=== PATIENT | male | born 1935 | race Caucasian/White ===

== ENCOUNTER 2017-04-28 07:11 | Day surgery (SDC) | payer OTHER ==
[2017-04-28] MEDS ORDERED: LIDOCAINE 1% 2 ML INJ ONE (08:08)
--- NOTE | 2017-04-28 08:26 | PDGENHP ---
History & Physical Chief Complaint: Microcytic anemia Relevant Physical Exam: GEN: NAD. Cardiac: Paced. Lungs: CTA B. Abd: Soft, nt , nd
--- NOTE | 2017-04-28 08:34 | PDANEPAE ---
ANE History of Present Illness Patient presents for colonoscopy ANE Past Medical History - Cardiovascular History Hx Hypertension: Yes Hx Arrhythmias: Yes Hx Chest Pain: No Hx Coronary Artery / Peripheral Vascular Disease: Yes Hx CHF / Valvular Disease: Yes Hx Palpitations: No Cardiovascular History Comment: Stent placed 2010. 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 - Cancer History Hx Cancer: Yes Cancer History Comment: SKIN CA - Congenital Disorder History Hx Congenital Disorders: No - GI History Hx Gastrointestinal Disorders: No - Other Health History Other Health History: SKIN CA. BRUISES EASILY. PT IS VERY HIGH FALL RISK - Chronic Pain History Chronic Pain: No - Surgical History Prior Surgeries: 2010 stent placed. 2013 pt fell [facility] Cardiac arrest. 2013 medtronic pacemaker/icd placed. 2015 pt experienced 4 falls one needed shoulder surgery. CARLI Review of Systems Review of Systems: - Exercise capacity METS (RN): 3 METS - Pacemaker Pacemaker Type: Permanent Pacer/Defib Pacemaker Director Of Sustainability: [employer] CARLI Patient History - Allergies Allergies/Adverse Reactions: cephalexin [From Keflex] Allergy (Mild, Verified 04/28/17 07:51) - NPO status NPO Status: no food or drink >8 hours - Anes Hx Anes Hx: no prior problems - Smoking Hx Smoking Status: Never smoked - Family Anes Hx Family Hx Anesthesia Complications: none ANE Labs/Vital Signs - Vital Signs Height: 182.88 cm Weight: 86.183 kg ANE Physical Exam - Airway Neck exam: FROM Mallampati Score: Class 2 Mouth exam: normal dental/mouth exam - Pulmonary Pulmonary: no respiratory distress - Cardiovascular Cardiovascular: regular rate and rhythym - ASA Status ASA Status: IV ANE Anesthesia Plan Anesthesia Plan: GA with mask Total IV Anesthesia: Yes
[2017-04-28] MEDS ORDERED: LIDOCAINE 1% 2 ML INJ ID PRN (08:36)
[2017-04-28] MEDS ORDERED: LR 1,000 ML IV ONE (08:36)
[2017-04-28 08:49] VITALS: PULSE 88; TEMP 97.5
[2017-04-28] MEDS ORDERED: PROPOFOL/EMULSION 500 MG/50 ML BOTTLE IV ONE (08:57)
[2017-04-28] MEDS ORDERED: NALOXONE HCL 0.4 MG/ML INJ IVP PRN ×2 (09:06→10:43)
[2017-04-28] MEDS ORDERED: ONDANSETRON 4 MG/2 ML VIAL IVP PRN ×2 (09:06→10:43)
--- NOTE | 2017-04-28 09:34 | GIREPORT ---
[facility] - Endoscopy Department Patient Name: Jg Stacy Procedure Date: 04/28/2017 8:52 AM Patient Type: Outpatient Attending / ER Physician: Ran Ramirez MD Procedure: Colonoscopy Indications: Iron deficiency anemia Providers: Ran Ramirez MD Medicines: Monitored Anesthesia Care Complications: No immediate complications. Description of Procedure: After obtaining informed consent, the scope was passed under direct vis ion. Throughout the procedure, the patient's blood pressure, pulse, and oxyg en saturations were monitored continuously. The Colonoscope with irrigatio n channel was introduced through the anus and advanced to the terminal il eum, with identification of the appendiceal orifice and IC valve. The colono scopy was performed without difficulty. The patient tolerated the procedure w ell. The quality of the bowel preparation was good. Findings: The perianal and digital rectal examinations were normal. The terminal ileum appeared normal. A 2 mm polyp was found in the ascending colon. The polyp was sessile. T he polyp was removed with a cold biopsy forceps. Resection and retrieval w ere complete. Verification of patient identification for the specimen was d one by the physician and nurse using the patient's name and date. Estimated blood loss was minimal. Two sessile polyps were found in the cecum. The polyps were 3 to 4 mm i n size. These polyps were removed with a cold snare. Resection and retrie charley were complete. Verification of patient identification for the specimen was done by the physician and nurse using the patient's name and date . Estimated blood loss was minimal. Multiple medium-mouthed diverticula were found in the sigmoid colon and descending colon. The retroflexed view of the distal rectum and anal verge was normal and showed no anal or rectal abnormalities. Estimated Blood Loss: Estimated blood loss: none. Post Op Diagnosis: - The examined portion of the ileum was normal. - One 2 mm polyp in the ascending colon, removed with a cold biopsy for ceps. Resected and retrieved. - Two 3 to 4 mm polyps in the cecum, removed with a cold snare. Resecte d and retrieved. - Diverticulosis in the sigmoid colon and in the descending colon. - The distal rectum and anal verge are normal on retroflexion view. Recommendation: - Discharge patient to home (with escort). - High fiber diet. - Continue present medications. - Repeat colonoscopy is not recommended for given his age for screening or surveillance purposes. - Await pathology results. Results are available in 10 days. - Thank you for allowing me to participate in the care of your patient. Attending Participation: I personally performed the entire procedure without the assistance of a fellow, resident or surg ical help desk assistant. Ran Ramirez MD Ran Ramirez MD 04/28/2017 9:33:47 AM This report has been signed electronicallyDadelmi Ramirez MD Number of Addenda: 0 Note Initiated On: 04/28/2017 8:52 AM Total Procedure Duration Time 0 hours 20 minutes 12 seconds [email or web address]
--- NOTE | 2017-04-28 09:54 | POSTANESTH ---
Post Anesthetic Evaluation Cardiovascular Status: Normal, Stable Respiratory Status: Normal, Stable Level of Consciousness/Mental Status: Mildly Sleepy, Arousable Pain Control: Adequate, Prn Tx Ordered Nausea/Vomiting Control: Adequate, Prn Tx Ordered Complications Possibly Related to Anesthesia: None Noted
[2017-04-28] MEDS ORDERED: LR 500 ML IV PRN (10:43)
[2017-04-28 10:51] VITALS: O2SAT 93
[2017-04-28 11:05] VITALS: RESP 18
[2017-04-28 11:15] VITALS: BP 156/91
== END 2017-04-28 11:18 | disposition home or self-care (01) ==
LOC: FSGY 07:11
PROVIDERS: ATTEND Internal Medicine Gastroenterology
PROC: 0DBH8ZX Excision of Cecum, Via Natural or Artificial Opening Endoscopic, Diagnostic (ICD-10-PCS; principal; 2017-04-28 08:45)
PROC: 0DBK8ZX Excision of Ascending Colon, Via Natural or Artificial Opening Endoscopic, Diagnostic (ICD-10-PCS; principal; 2017-04-28 08:45)
DX: D12.2 Benign neoplasm of ascending colon (principal); D12.0 Benign neoplasm of cecum; D50.9 Iron deficiency anemia, unspecified
CPT/HCPCS: J2704

== ENCOUNTER 2017-05-21 09:53 | Emergency (ER) | payer OTHER ==
[2017-05-21] MEDS ORDERED: FUROSEMIDE 40 MG/4 ML VIAL IVP ONE (10:15)
--- NOTE | 2017-05-21 10:17 | EDPHY ---
H & P Stated Complaint: SOB--Bilat low ext edema, sent from pcp for presumed CHF flare Time Seen by Provider: 05/21/17 10:06 HPI/ROS: CHIEF COMPLAINT: CHF HISTORY OF PRESENT ILLNESS: Patient is a 81-year-old man who was sent to the emergency department from his airport operations specialist's office for CHF exacerbation. Patient has a history of coronary artery disease, CVA, pacemaker, stents, atrial flutter currently not on anticoagulants other than aspirin. He has a watchman filter in place and has an ablation scheduled in 2 weeks. He has an ejection fraction 25%. He has decompensated over the last few days. He missed a couple doses of his Lasix which is usually 20 mg per day. He has gained 10 lb the last 2 days. His airport operations specialist is Dr. Vinson. They recommended he come here for IV Lasix and admission. No fevers. REVIEW OF SYSTEMS: Constitutional: denies: chills, fever, recent illness, recent injury EENTM: denies: blurred vision, double vision, nose congestion Respiratory: denies: cough, shortness of breath Cardiac: denies: chest pain, irregular heart rate, lightheadedness, palpitations Gastrointestinal/Abdominal: denies: abdominal pain, diarrhea, nausea, vomiting, blood streaked stools Genitourinary: denies: dysuria, frequency, hematuria, pain Musculoskeletal: denies: joint pain, muscle pain Skin: denies: lesions, rash, jaundice, bruising Neurological: denies: headache, numbness, paresthesia, tingling, dizziness, weakness Hematologic/Lymphatic: denies: blood clots, easy bleeding, easy bruising Immunologic/allergic: denies: HIV/AIDS, transplant EXAM: GENERAL: Well-appearing, well-nourished and in no acute distress. HEAD: Atraumatic, normocephalic. EYES: Pupils equal round and reactive to light, extraocular movements intact, sclera anicteric, conjunctiva are normal. ENT: TMs normal, nares patent, oropharynx clear without exudates. Moist mucous membranes. NECK: Normal range of motion, supple without lymphadenopathy or JVD. LUNGS: Breath sounds clear to auscultation bilaterally and equal. No wheezes rales or rhonchi. HEART: Regular rate and rhythm without murmurs, rubs or gallops. ABDOMEN: Soft, nontender, normoactive bowel sounds. No guarding, no rebound. No masses appreciated. BACK: No CVA tenderness, no spinal tenderness, step-offs or deformities EXTREMITIES: Normal range of motion, no pitting or edema. No clubbing or cyanosis. NEUROLOGICAL: Cranial nerves II through XII grossly intact. Normal speech, normal gait. 5/5 strength, normal movement in all extremities, normal sensation PSYCH: Normal mood, normal affect. SKIN: Warm, dry, normal turgor, no visible rashes or lesions. Source: Patient Exam Limitations: No limitations - Personal History Current Tetanus/Diphtheria Vaccine: Unsure Current Tetanus Diphtheria and Acellular Pertussis (TDAP): Unsure - Medical/Surgical History Hx Asthma: No Hx Chronic Respiratory Disease: No Hx Diabetes: No Hx Cardiac Disease: Yes Hx Renal Disease: No Hx Cirrhosis: No Hx Alcoholism: No Hx HIV/AIDS: No Hx Splenectomy or Spleen Trauma: No Other PMH: CHF, a flutter, Pacer. htn, cva L leg deficit. radiation L lower leg 04/21. filter L [facility] - Family History Significant Family History: No pertinent family hx - Social History Smoking Status: Never smoked Alcohol Use: Sober Drug Use: None Constitutional: Initial Vital Signs Temperature (C) 36.5 C 05/21/17 10:00 Heart Rate 71 05/21/17 10:00 Respiratory Rate 18 05/21/17 10:00 Blood Pressure 152/108 H 05/21/17 10:00 O2 Sat (%) 97 05/21/17 10:00 O2 Delivery Mode Room Air Allergies/Adverse Reactions: cephalexin [From Keflex] Allergy (Mild, Verified 04/28/17 07:51) Home Medications: Medication Instructions Recorded Aspirin 05/21/17 Furosemide [Lasix 40 MG (*)] 40 mg PO DAILY #10 tab 05/21/17 Lisinopril 05/21/17 SIMVASTATIN 05/21/17 Medical Decision Making - Diagnostics EKG Interpretation: An EKG obtained and was read and documented in trace view. Please see trace view for full reading and report. Ventricular paced rhythm Imaging: Discussed imaging studies w/ call worker person Radiologist ED Course/Re-evaluation: 11:40 a.m. we discussed the test results. The patient is overall looking very good. Saturations 97% on room air. No crackles on lung exam. X-ray no significant changes. I suspect that the patient could be treated as an outpatient. He skipped several days of Lasix. I encouraged him to be more reliable and will increase it for the next few days. I will call his airport operations specialist to discuss. 12:05 pm the patient is clinically doing well. His x-ray and lab work are reassuring. I discussed this with his medical apparatus model maker Dr. Raines who agrees that he could be managed at home on oral Lasix. She states that she tried to do this from the office but that the was somewhat resistant. We will increase him to 40 mg daily for 3 days and then have him follow up in their clinic. I spoke with the who was hesitant to take him back home because she is very busy trying to finish a paper that she has been working on for 5 years. She did however agree and states that that seemed reasonable. She will come pick him up at 2:30 a.m.. 2:50 p.m. the patient's is here to pick him up. He has urinated multiple times. He is feeling well. He has had without difficulty. He is not short of breath. He is not hypoxic. Differential Diagnosis: Partial list of the Differential diagnosis considered include but were not limited to; anxiety, CHF exacerbation, pulmonary edema and although unlikely based on the history and physical exam, I also considered infection, pneumonia acute coronary disease. - Data Points Laboratory Results: Laboratory Results 05/21/17 10:36 05/21/17 10:36 Medications Given: Discontinued Medications Furosemide (Lasix Injection) 40 mg IVP EDNOW ONE Stop: 05/21/17 10:16 Last Admin: 05/21/17 10:47 Dose: 40 mg Departure - Departure Disposition: Home, Routine, Self-Care Clinical Impression: Congestive heart failure Qualifiers: Congestive heart failure type: unspecified congestive heart failure type Congestive heart failure chronicity: acute on chronic Qualified Code(s): I50.9 - Heart failure, unspecified Condition: Good Instructions: Heart Failure (ED) Referrals: KOFFI LAURA [Other] - As per Instructions Prescriptions: Furosemide [Lasix 40 MG (*)] 40 mg PO DAILY #10 tab
--- NOTE | 2017-05-21 10:32 | CPEKG ---
Heart Rate: 70 RR Interval: 857 P-R Interval: 217 QRSD Interval: 148 QT Interval: 452 QTC Interval: 488 P [place]: 0 QRS [place]: -64 T Wave [place]: 122 EKG Severity - ABNORMAL ECG - EKG Impression: VENTRICULAR-PACED RHYTHM Electronically Signed By: Franco Cobb 21-May-2017 10:33:51
[2017-05-21 10:48] LABS: % IMMATURE GRANULYOCYTES 0.4 % (0.0-1.1); ABSOLUTE IMMATURE GRANULOCYTES 0.02 10^3/uL (0.00-0.10); ADD DIFF? NO; ADD MORPH? YES; ADD SCAN? NO; ATYPICAL LYMPHOCYTE FLAG 20 (0-99); FRAGMENT RBC FLAG 20 (0-99); HEMOGLOBIN 13.1 g/dL (13.7-17.5); LEFT SHIFT FLG 0 (0-99); LIPEMIA HEMOLYSIS FLAG 80 (0-99); MEAN CELL HEMOGLOBIN 26.9 pg (27.9-34.1); MEAN CELL HEMOGLOBIN CONCENTR. 32.8 g/dL (32.4-36.7); MEAN CELL VOLUME 82.1 fL (81.5-99.8); MEAN PLATELET VOLUME 10.2 fL (8.7-11.7); PLATELET CLUMPS FLAG 0 (0-99); PLATELET COUNT 155 10^3/uL (150-400); RED BLOOD CELL COUNT 4.87 10^6/uL (4.40-6.38)
[2017-05-21 10:54] LABS: RED CELL DISTRIBUTION WIDTH 25.2 % (11.5-15.2)
[2017-05-21 10:57] LABS: INR 1.2 (0.83-1.16); PROTIME(PATIENT) 15.2 SEC (12.0-15.0)
[2017-05-21 10:59] LABS: ANION GAP 10 mEq/L (8-16); CARBON DIOXIDE 29 mEq/l (22-31); CHLORIDE 108 mEq/L (97-110); CREATININE 1.5 mg/dL (0.7-1.3); GLOMERULAR FILTRATION RATE 45; GLUCOSE 93 mg/dL (70-100); POTASSIUM 4.3 mEq/L (3.5-5.2); SODIUM 147 mEq/L (134-144)
[2017-05-21 11:11] LABS: TROPONIN I 0.016 ng/mL (0.000-0.034)
[2017-05-21 11:33] LABS: PLATELET ESTIMATE ADEQUATE (ADEQ)
[2017-05-21 11:41] LABS: MACROCYTES 1+; MICROCYTES 1+
[2017-05-21 12:18] VITALS: O2SAT 92
[2017-05-21 15:00] VITALS: BP 150/109; PULSE 76; RESP 20; TEMP 98.6
== END 2017-05-21 14:59 | disposition home or self-care (01) ==
DX: I50.9 Heart failure, unspecified (principal); I11.0 Hypertensive heart disease with heart failure; Z79.82 Long term (current) use of aspirin; Z86.73 Personal history of transient ischemic attack (TIA), and cerebral infarction without residual deficits
CPT/HCPCS: 71020; 93005; 96374; 99285; J1940